=== PATIENT | male | born 1980 | race Caucasian/White ===

== ENCOUNTER 2017-09-13 18:17 | Inpatient (IN) | payer MEDICAID ==
[2017-09-13] VITALS (13 sets, daily range): BP systolic 17–180; BP diastolic 99–127
[~2017-09-13] VITALS: Ht 167.6 cm; Wt 88.5 kg
--- NOTE | ~2017-09-13 | ST ---
[place], [place] EXERCISE STRESS TEST REPORT NAME: AYAD BRAY [facility] #: [id number] UNIT #: [id number] ROOM: 521 DOCTOR: ONOFRE SYED MD BIRTHDATE: [birth year] DOS: 09/14/2017 REFERRING PHYSICIAN: Dr. Cheri Shankar. INDICATION: Central chest pain. The patient underwent standard Ahmet protocol stress EKG Baseline EKG shows normal sinus rhythm, nonspecific ST-T wave changes. The patient's baseline heart rate is 70 with a blood pressure of 148/90. The patient's peak heart rate was 167 with a blood pressure of 180/96. The patient exercised for 9 minutes and 30 seconds to a peak heart rate of 167, which represents 92% of maximum predicted. The patient achieved peak metabolic equivalent level of 10 mets. The patient had no chest pain, no EKG changes. No arrhythmias. The Lou treadmill score calculated at 9.5. SUMMARY OF FINDINGS: 1. Negative stress EKG for ischemia. 2. Lou treadmill score of 9.5, portending a low risk prognosis. 3. Please see separate report for perfusion scan results. ONOFRE SYED MD CM:STRESS:EXERCISE STRESS TEST REPORT [id number] ONOFRE SYED MD
[~2017-09-13 18:17] MED LIST: ABILIFY10 MG PO; AMOXICILLIN500 MG PO; CIPRO500 MG PO; CLEOCIN150 MG PO; CLINDAMYCIN HC300 MG PO; CLINDAMYCIN300 MG PO; FLOMAX0.4 MG PO; HYDROCODONE BIT1 T11 PO; MOTRIN800 MG PO; NAPROSYN500 MG PO; NORCO 325 MG-51 TAB PO; PEN-V500 MG PO; PEN-VEE K500 MG PO; PEN-VK500 MG PO; PENICILLIN VK500 MG PO; PERCOCET 325 MG1 TA2 PO; PERIDEX 480 ML480 ML PO; SEROQUEL50 MG PO; ULTRAM50 MG PO; VALIUM10 MG PO; VIBRAMYCIN100 MG PO; VICODIN ES 7501 TAB PO; XANAX PO; XANAX0.5 MG PO; XANAX2 MG PO; Zofran4 MG PO
[2017-09-13 18:29] LABS: BASO % 0.5 % (0.0-1.0); EOS # 0.1 10*3/uL (0.0-0.4); EOS % 1.4 % (1.0-4.0); HEMATOCRIT 46.4 % (42.0-52.0); HEMOGLOBIN 16.2 g/dl (14.0-18.0); LYMPH # 3.7 10*3/uL (1.3-4.4); LYMPH % 42.7 % (27.0-41.0); MEAN CELL VOLUME 90.4 fl (80.0-94.0); MEAN CORPUSCULAR HGB 31.6 pg (27.0-31.0); MEAN CORPUSCULAR HGB CONC 34.9 g/dl (33.0-37.0); MEAN PLATELET VOLUME 9.8 fl (9.6-12.3); MONO # 0.9 10*3/uL (0.1-1.0); MONO % 10.1 % (3.0-9.0); NEUT # 3.9 10*3/uL (2.3-7.9); NEUT % 45.1 % (47.0-73.0); PLATELET COUNT AUTOMATED 270 10*3/uL (130-400); RED BLOOD COUNT 5.13 10*6/uL (4.50-5.90); RED CELL DISTRI WIDTH 12.7 % (0-14.5); WHITE BLOOD COUNT 8.7 10*3/uL (4.8-10.8)
--- NOTE | 2017-09-13 18:39 | NUR ---
PT STATES, "IM TRYING HARD NOT TO PASS OUT." PT STATES HE FEELS NAUSEATED WELL.
[2017-09-13 18:47] LABS: ALBUMIN 3.8 gm/dl (3.1-4.5); ALKALINE PHOSPHATASE 73 U/L (45-117); BUN 5 mg/dl (7-24); CHLORIDE 102 mmol/L (98-107); CREATININE 1.06 mg/dL (0.70-1.30); MAGNESIUM 2.2 mg/dL (1.5-2.1); POTASSIUM 3.3 mmol/L (3.5-5.1); SGOT/AST 65 IU/L (3-35); SGPT/ALT 54 U/L (12-78); SODIUM 136 mmol/L (136-145); TOTAL PROTEIN 7.5 gm/dL (6.4-8.2); TROPONIN I < 0.015 ng/ml (<0.045)
[2017-09-13 18:50] LABS: ACT PARTIAL THROMBO TIME 22.8 SECONDS (20.8-31.5)
--- NOTE | 2017-09-13 19:24 | NUR ---
NORMAL SALINE TITRATED DOWN TO 250ML/HR AFTER INFORMING KINAS ABOUT BP
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
[2017-09-13 19:48] LABS: URINE AMPHETAMINES < 1000 (1000ng/ml); URINE BARBITURATES < 200 (200ng/ml); URINE BENZODIAZEPINES < 200 (200ng/ml); URINE CANNABINOIDS (THC) < 50 (50ng/ml); URINE COCAINE < 300 (300ng/ml); URINE METHADONE < 300 (300ng/ml); URINE OPIATES < 300 (300ng/ml)
[2017-09-13 19:49] LABS: URINE PHENCYCLIDINE < 25 (25ng/ml)
[2017-09-13 19:51] LABS: BILIRUBIN NEGATIVE (NEGATIVE); BLOOD NEGATIVE (NEGATIVE); CLARITY SL CLOUDY (CLEAR); COLOR YELLOW (YELLOW); GLUCOSE NEGATIVE (NEGATIVE); KETONE TRACE (NEGATIVE); LEUKO ESTERASE NEGATIVE (NEGATIVE); NITRITE NEGATIVE (NEGATIVE); UROBILINOGEN 0.2 E.U./dl (0.2-1.0)
[2017-09-13 20:10] LABS: BACTERIA 1+; EPITHELIAL CELLS 0-2; RBC 0-2 rbc/hpf (0-2); WBC 0-2 wbc/hpf (0-5)
--- NOTE | 2017-09-13 23:10 | NUR ---
[facility] , under the services of MIK Borden DO with a diagnosis of ACCLERATED HYPERTENSION, TACHYCARDIA. Chief complaint is CHEST PAIN . Patient arrived via ambulatory from ER. Monitor applied. Initial assessment completed. Vital signs taken and recorded. MIK BORDEN DO notified of admission to the unit. Orders received. See assessment for past medical history, medications and allergies. Patient and/or family oriented to unit. [address] visitation policy reviewed. Clothing/patient valuable form completed. DIMITRIOS RAI
--- NOTE | 2017-09-13 23:43 | NUR ---
DR. VAIL ANSWERING SERVICE CALLED AT THIS TIME FOR CONSULTATION. AWAITING RETURN CALL.
--- NOTE | 2017-09-13 23:46 | NUR ---
DR. SYED CALLED BACK AT THIS TIME. NEW ORDERE RECIEVED FOR CLONIDINE PRN . ALSO REMAIN NPO . AND PATIENT WILL BE SEEN IN AM .
--- NOTE | 2017-09-14 | NUR ---
PATIENT UNABLE TO PROVIDE MEDICATIONS LIST AND UNABLE TO REMEMBER WHAT MEDICATIONS HE TAKES
[2017-09-14 01:28] VITALS: BP 162/68
--- NOTE | 2017-09-14 01:30 | NUR ---
DR. WESTFALL AWARE THAT PATIENT DOES NOT KNOW HIS HOME MEDICAITONS.
[2017-09-14 04:00] VITALS: BP 168/92
[2017-09-14 06:03] VITALS: BP 136/72
--- NOTE | 2017-09-14 06:16 | NUR ---
PATIENT AROUSES EASILY FOR POTASSIUM SUPPLEMENT AT THIS TIME. BLOOD PRESSURE OBTAINED. PATIENT DENIES ANY NEEDS AT THE PRESENT TIME. CALL LIGHT IS IN REACH.
[2017-09-14 07:35] LABS: BASO % 0.4 % (0.0-1.0); EOS # 0.1 10*3/uL (0.0-0.4); EOS % 1.5 % (1.0-4.0); HEMATOCRIT 44.8 % (42.0-52.0); HEMOGLOBIN 15.3 g/dl (14.0-18.0); LYMPH # 1.9 10*3/uL (1.3-4.4); LYMPH % 19.4 % (27.0-41.0); MEAN CELL VOLUME 92.2 fl (80.0-94.0); MEAN CORPUSCULAR HGB 31.5 pg (27.0-31.0); MEAN CORPUSCULAR HGB CONC 34.2 g/dl (33.0-37.0); MONO # 0.8 10*3/uL (0.1-1.0); MONO % 7.9 % (3.0-9.0); NEUT # 6.7 10*3/uL (2.3-7.9); NEUT % 70.5 % (47.0-73.0); PLATELET COUNT AUTOMATED 225 10*3/uL (130-400); RED BLOOD COUNT 4.86 10*6/uL (4.50-5.90); RED CELL DISTRI WIDTH 12.9 % (0-14.5); WHITE BLOOD COUNT 9.6 10*3/uL (4.8-10.8)
--- NOTE | 2017-09-14 08:00 | NUR ---
Book Editor in to talk to patient. Patient states lives at HOME with HIS FIANCE. There are 3 steps in the home. Physician: DR VIGIL- HAS NOT SEEN Pharmacy: [facility] Home health services: NONE Patient's level of ADLs: INDEPENDENT Patient has working utilities: YES DME: NONE Follow-up physician's appointment after d/c: WILL BE MADE PRIOR TO DC Does patient want to access PORTAL?: Discharge plan HOME. PARUL REYNA
[2017-09-14 08:04] LABS: ALBUMIN 3.4 gm/dl (3.1-4.5); ALKALINE PHOSPHATASE 70 U/L (45-117); BUN 5 mg/dl (7-24); CHLORIDE 108 mmol/L (98-107); CHOLESTEROL 161 mg/dL (<200); CREATININE 0.99 mg/dL (0.70-1.30); HDL CHOLESTEROL 64 mg/dl (40-60); LDL CHOLESTEROL 83 mg/dL (9-159); PHOSPHOROUS 3.4 mg/dL (2.5-4.9); SGPT/ALT 49 U/L (12-78); TOTAL PROTEIN 6.9 gm/dL (6.4-8.2); TRIGLYCERIDES 68 mg/dl (<150); VLDL CHOLESTEROL 14 mg/dL (6-40)
[2017-09-14 08:11] VITALS: BP 112/83
[2017-09-14 08:13] LABS: VITAMIN D, 25-HYDROXY 21.1 ng/mL (30-100)
[2017-09-14 08:23] LABS: MAGNESIUM 2.2 mg/dL (1.5-2.1); SGOT/AST 50 IU/L (3-35); SODIUM 141 mmol/L (136-145)
[2017-09-14 08:27] LABS: POTASSIUM 4.4 mmol/L (3.5-5.1)
--- NOTE | 2017-09-14 11:30 | NUR ---
INFORMED CONSENT OBTAINED FOR EXERCISE CARDIOLITE STRESS TEST WITH DR. LUA. RESTING EKG NSR WITH FREQUENT PAC'S WITH A RESTING HR OF 70 WITH BP OF 148/90 AND HR OF 82 WITH BP OF 152/98 IN STANDING POSITION. PT COMPLETED 9:30 OF A JOSIE PROTOCOL WITH A PEAK HR OF 167 WHICH IS 92% OF PREDICTED MAX AND A PEAK BP OF 166/100. TEST TERMINATED BECAUSE OF FATIGUE. HAD NO CHEST PAIN OR ANY EKG CHANGES. HAS FREQUENT PAC'S. LAST RECOVERY HR OF 114 WITH BP OF 142/88. NEGATIVE GXT FOR EKG AT 92% OF PMHR. TO NUCLEAR MEDICINE IN STABLE CONDITION FOR SCANNING.
[2017-09-14 12:31] VITALS: BP 145/97
[2017-09-14] MEDS ORDERED: NICOTINE PATCH1 EAC2 TD (14:36)
[2017-09-14] MEDS ORDERED: LISINOPRIL10 M1 PO ×2 (14:36→14:49)
[2017-09-14] MEDS ORDERED: VITAMIN D-32000 UNI1 PO (14:37)
--- NOTE | 2017-09-14 15:11 | NUR ---
Discharge instructions reviewed with patient/family. Patient receptive and verbalizes understanding. Follow-up care arranged. Written instructions given to patient/family. FELISHA HICKS
[2017-09-15] MEDS ORDERED: XANAX2 M1 PO (23:57)
[2017-09-15] MEDS ORDERED: CLONIDINE HCL0.2 MG PO (23:59)
== END 2017-09-14 15:11 | disposition home or self-care (01) | DRG 313 ==
LOC: ED 18:17 → EDHOLD 21:37 → 5E 21:37
PROVIDERS: Emergency Medicine; Internal Medicine; Physician Assistant; ADMIT Internal Medicine
PROC: 3E073KZ Introduction of Other Diagnostic Substance into Coronary Artery, Percutaneous Approach (ICD-10-PCS; principal; 2017-09-14)
PROC: 4A02XM4 Measurement of Cardiac Total Activity, External Approach (ICD-10-PCS; principal; 2017-09-14)
DX: R07.89 Other chest pain (principal); E83.42 Hypomagnesemia; K22.8 Other specified diseases of esophagus; S02.82XA Fracture of other specified skull and facial bones, left side, initial encounter for closed fracture; I10 Essential (primary) hypertension; E87.6 Hypokalemia; F31.9 Bipolar disorder, unspecified; F17.210 Nicotine dependence, cigarettes, uncomplicated; F10.920 Alcohol use, unspecified with intoxication, uncomplicated; R73.9 Hyperglycemia, unspecified; R74.0 Nonspecific elevation of levels of transaminase and lactic acid dehydrogenase [LDH]; Z71.6 Tobacco abuse counseling; Z82.49 Family history of ischemic heart disease and other diseases of the circulatory system; Z79.899 Other long term (current) drug therapy; Z88.6 Allergy status to analgesic agent; Z88.5 Allergy status to narcotic agent; Y90.1 Blood alcohol level of 20-39 mg/100 ml; Y04.0XXA Assault by unarmed brawl or fight, initial encounter; Y93.89 Activity, other specified; Y92.89 Other specified places as the place of occurrence of the external cause; Y99.8 Other external cause status

== ENCOUNTER 2017-09-15 15:40 | Inpatient (IN) | payer MEDICAID ==
[~2017-09-15] VITALS: Ht 167.6 cm; Wt 90.1 kg
--- NOTE | ~2017-09-15 | CON ---
[place], [place] REPORT OF CONSULTATION [id number] #: [id number] ROOM: 504 DOCTOR: REMI MCCRACKEN MD BIRTHDATE: [birth year] DOS: 09/16/2017 HISTORY OF PRESENT ILLNESS: The patient was seen at his bedside with family in attendance on 09/16/2017. He is a 37-year-old man who does have a history of anxiety and tobacco abuse. He was hospitalized several days ago with chest pain and ruled out for myocardial infarction. A stress test showed no evidence for ischemia and normal left ventricular systolic function. He stated that he felt well when he got home, but was not sure that he got the right dose of his blood pressure medications. He had a disagreement with his children and was yelling at them when he felt lightheaded and then developed some pain under his left axilla. This resolved spontaneously, but recurred. He became frightened and therefore came to the Emergency Room. In the ER, all of his symptoms resolved. He has felt well since admission and denies any chest pain. Electrocardiograms showed LVH, but no acute changes and cardiac biomarkers were all normal. PAST MEDICAL HISTORY: Includes: 1. Bipolar disorder with depression. 2. Essential hypertension. 3. Schizophrenia. 4. History of facial fracture repair. 5. History of knee surgery. 6. CAT scan of the chest recently showed esophageal thickening consistent with esophagitis. MEDICATIONS: Prior to admission, alprazolam 0.5 mg p.o. p.r.n., vitamin D 2000 units daily, lisinopril 20 mg daily and nicotine patch daily. ALLERGIES: MORPHINE AND TRAMADOL. FAMILY HISTORY: The patient's father has hypertension at age 54. His mother is healthy at age 53. REVIEW OF SYSTEMS: The patient denies diplopia or loss of vision. He denies syncope, although he has been lightheaded. He denies focal weakness. He denies fevers, chills, sweats or recent weight change. He denies nausea or vomiting. He denies change in bowel or bladder habits and denies bleeding from his stools or urine. He denies any skin rashes. He denies hemoptysis or hematemesis. He denies any peripheral edema. He denies hot or swollen joints. There is no complaint of polydipsia, polyuria or heat or cold intolerance. The remainder of the review of systems is negative except as noted above. SOCIAL HISTORY: The patient has a history of alcohol abuse and does smoke, but does not use any illicit drugs. PHYSICAL EXAMINATION: GENERAL: Reveal fairly anxious and agitated appearing white male who is awake, alert and oriented. VITAL SIGNS: Pulse is 99 and regular, blood pressure is 140/90. He is afebrile. He weighs 90.1 kg and has a body mass index of 32.1. HEENT: Normocephalic, atraumatic. Extraocular muscles are intact. Sclerae are [place], [place] REPORT OF CONSULTATION NAME: AYAD BRAY UNIT #: [id number] ROOM: [facility] DOCTOR: REMI MCCRACKEN MD BIRTHDATE: [birth year] clear. Pupils are equal, round and reactive to light. The oral mucosa is moist. Tongue is midline. NECK: Supple. He has no jugular distention. Carotids are full and I heard no bruits. He had no neck or supraclavicular masses. LUNGS: Respirations are unlabored. His chest is clear to auscultation and percussion. He has no presacral edema or chest wall tenderness. CARDIOVASCULAR: His heart has a regular rhythm. He has a soft S4 gallop, but no S3 or murmur. The PMI is not displaced. He has no precordial heave, lift or thrill. ABDOMEN: Soft and normally active. EXTREMITIES: Pedal pulses are full and equal bilaterally. LABORATORY DATA: I reviewed his electrocardiogram, which showed sinus rhythm and left ventricular hypertrophy, but was otherwise unremarkable. IMPRESSIONS: 1. Atypical chest pain. The patient had a recent stress test which was low risk. He appears to be very anxious and it is likely that his anxiety is contributing to his chest discomfort. 2. Hypertension, which is only marginally controlled. 3. History of bipolar disorder and schizophrenia. PLAN: No other cardiac workup is planned at this time. The patient may be discharged to home with further management of his hypertension as an outpatient. [facility] and I thank Dr. King and the hospitalist physicians for asking our advice regarding his care. REMI MCCRACKEN MD CM:CONSTR:REPORT OF CONSULTATION [id number]/16/[id number] interface
[~2017-09-15 15:40] MED LIST changes: +LISINOPRIL10 M1 PO; +NICOTINE PATCH1 EAC2 TD; +VITAMIN D-32000 UNI1 PO
[2017-09-15 15:51] VITALS: BP 148/97
[2017-09-15 16:06] LABS: BASO % 0.4 % (0.0-1.0); EOS % 0.3 % (1.0-4.0); HEMATOCRIT 42.7 % (42.0-52.0); HEMOGLOBIN 14.7 g/dl (14.0-18.0); LYMPH # 1.4 10*3/uL (1.3-4.4); LYMPH % 19.6 % (27.0-41.0); MEAN CELL VOLUME 92.2 fl (80.0-94.0); MEAN CORPUSCULAR HGB 31.7 pg (27.0-31.0); MEAN CORPUSCULAR HGB CONC 34.4 g/dl (33.0-37.0); MEAN PLATELET VOLUME 9.8 fl (9.6-12.3); MONO # 0.7 10*3/uL (0.1-1.0); MONO % 9.2 % (3.0-9.0); NEUT % 70.2 % (47.0-73.0); PLATELET COUNT AUTOMATED 207 10*3/uL (130-400); RED BLOOD COUNT 4.63 10*6/uL (4.50-5.90); RED CELL DISTRI WIDTH 12.8 % (0-14.5); WHITE BLOOD COUNT 7.2 10*3/uL (4.8-10.8)
[2017-09-15 16:15] LABS: ACT PARTIAL THROMBO TIME 21.5 SECONDS (20.8-31.5)
[2017-09-15 16:23] LABS: ALBUMIN 3.6 gm/dl (3.1-4.5); ALKALINE PHOSPHATASE 74 U/L (45-117); BUN 5 mg/dl (7-24); CHLORIDE 106 mmol/L (98-107); CREATININE 1.08 mg/dL (0.70-1.30); MAGNESIUM 2.1 mg/dL (1.5-2.1); POTASSIUM 3.9 mmol/L (3.5-5.1); SGOT/AST 36 IU/L (3-35); SGPT/ALT 48 U/L (12-78); SODIUM 139 mmol/L (136-145); TOTAL PROTEIN 7.3 gm/dL (6.4-8.2)
[2017-09-15 16:24] LABS: TROPONIN I < 0.015 ng/ml (<0.045)
[2017-09-15 16:47] VITALS: BP 137/93
--- NOTE | 2017-09-15 17:11 | NUR ---
LEFT MESSAGE FOR CONSULT WITH CARDIOLOGY ANSWERING SERVICE
--- NOTE | 2017-09-15 17:18 | NUR ---
A 37, admitted to 5E, under the services of CANDACE Weston DO with a diagnosis of CHEST PAIN. Chief complaint is LEFT SIDED CHEST PAIN. FELT LIKE HE WAS GOING TO PASS OUT. Patient arrived via stretcher from ER. Monitor applied. Initial assessment completed. Vital signs taken and recorded. CANDACE WESTON DO notified of admission to the unit. Orders received. See assessment for past medical history, medications and allergies. Patient and/or family oriented to unit. [address] visitation policy reviewed. Clothing/patient valuable form completed. MARISABEL NARVAEZ
--- NOTE | 2017-09-15 17:30 | NUR ---
MEDS VERIFIED WITH D/C YESTERDAY'S DISCHARGE. PATIENT'S PHARMACY IS CLOSED.
[2017-09-15 17:35] VITALS: BP 134/88
--- NOTE | 2017-09-15 17:58 | NUR ---
URSULAIED DR SALTER THAT MEDS WERE VERIFIED WITH D/C
[2017-09-15 20:00] VITALS: BP 150/78
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
[2017-09-15 22:25] LABS: BILIRUBIN NEGATIVE (NEGATIVE); BLOOD NEGATIVE (NEGATIVE); CLARITY CLEAR (CLEAR); COLOR YELLOW (YELLOW); GLUCOSE NEGATIVE (NEGATIVE); KETONE NEGATIVE (NEGATIVE); LEUKO ESTERASE NEGATIVE (NEGATIVE); NITRITE NEGATIVE (NEGATIVE); SPECIFIC GRAVITY <= 1.005 (1.005-1.030); UROBILINOGEN 0.2 E.U./dl (0.2-1.0)
[2017-09-15 22:32] LABS: BACTERIA TRACE; EPITHELIAL CELLS 0-2; RBC 0-2 rbc/hpf (0-2); WBC 0-2 wbc/hpf (0-5)
[2017-09-15] MEDS ORDERED: XANAX2 M1 PO (23:57)
[2017-09-15] MEDS ORDERED: CLONIDINE HCL0.2 MG PO (23:59)
[2017-09-16] VITALS: BP 150/90
[2017-09-16] MEDS ORDERED: TRAZODONE100 MG PO
--- NOTE | 2017-09-16 | NUR ---
PT'S VERY ANXIOUS; BLOOD PRESSURE ELEVATED. CALLED DR. DYER TO INFORM HIM. PT. ALSO TAKES XANAX 2 MG PO TID & XANAX 0.5 MG WAS ORDERED FOR PT. PT. CONTINIOUSLY ON CELL PHONE & STATES THAT HIS IS TRYING TO PUT THEIR CHILDREN TO SLEEP. PT. ALSO STATES THAT HE HAS A DIFFICULT TIME SLEEPING & RELAXING. NEW ORDER RECEIVED FROM DR. DYER.
--- NOTE | 2017-09-16 01:14 | NUR ---
MEDICATED WITH XANAX AN ADDITIONAL 1.5 MG.
--- NOTE | 2017-09-16 04:24 | NUR ---
RESTING IN BED WITH EYES CLOSED; XANAX GIVEN EARLIER APPARENTLY EFFECTIVE.
[2017-09-16 06:42] LABS: BASO % 0.4 % (0.0-1.0); EOS # 0.1 10*3/uL (0.0-0.4); EOS % 1.4 % (1.0-4.0); HEMATOCRIT 43.3 % (42.0-52.0); HEMOGLOBIN 14.6 g/dl (14.0-18.0); LYMPH # 1.9 10*3/uL (1.3-4.4); LYMPH % 25.2 % (27.0-41.0); MEAN CORPUSCULAR HGB CONC 33.7 g/dl (33.0-37.0); MEAN PLATELET VOLUME 10.1 fl (9.6-12.3); MONO # 0.7 10*3/uL (0.1-1.0); MONO % 9.7 % (3.0-9.0); NEUT # 4.6 10*3/uL (2.3-7.9); PLATELET COUNT AUTOMATED 186 10*3/uL (130-400); RED BLOOD COUNT 4.56 10*6/uL (4.50-5.90); RED CELL DISTRI WIDTH 12.7 % (0-14.5); WHITE BLOOD COUNT 7.4 10*3/uL (4.8-10.8)
[2017-09-16 06:53] LABS: ALBUMIN 3.2 gm/dl (3.1-4.5); ALKALINE PHOSPHATASE 69 U/L (45-117); BUN 6 mg/dl (7-24); CHLORIDE 107 mmol/L (98-107); CREATININE 0.93 mg/dL (0.70-1.30); MAGNESIUM 2.2 mg/dL (1.5-2.1); PHOSPHOROUS 3.9 mg/dL (2.5-4.9); POTASSIUM 3.6 mmol/L (3.5-5.1); SGOT/AST 23 IU/L (3-35); SGPT/ALT 44 U/L (12-78); SODIUM 141 mmol/L (136-145); TOTAL PROTEIN 6.8 gm/dL (6.4-8.2)
--- NOTE | 2017-09-16 07:30 | NUR ---
ASSUMED CARE OF PT AT THIS TIME, RESPS EASY AND NONLABORED WITH NO S/S OF DISTRESS CALL LIGHT WITH IN REACH.
[2017-09-16 08:00] VITALS: BP 151/79
--- NOTE | 2017-09-16 10:00 | NUR ---
PT REFUSED LOVENOX INJECTION AT THIS TIME, STATES THAT HE HAS BEEN AMBULATING IN ROOM, AND DOES NOT NEED MEDICATION
--- NOTE | 2017-09-16 11:35 | NUR ---
PT PACING UP AND DOWN HALLWAY, PT STATES THAT HE IS HAVING FAMILY PROBLEMS AND IS WANTING TO GO HOME
[2017-09-16 12:00] VITALS: BP 148/69
[2017-09-16 15:55] VITALS: BP 143/91
--- NOTE | 2017-09-16 18:35 | NUR ---
INTO SEE PT AT THIS TIME
--- NOTE | 2017-09-16 18:43 | NUR ---
CALL PLACED TO RESIDENT TO NOTIFY THAT HAS SIGNED OFF ON PT, AWAITING A RETURN CALL
--- NOTE | 2017-09-16 19:40 | NUR ---
HEP LOCK DISCONTINUED; STERILE DRESSING APPLIED. MONITOR TAKEN OFF & GIVEN TO RAMP AGENT.
--- NOTE | 2017-09-16 19:50 | NUR ---
DISCHARGE INSTRUCTIONS REVIEWED WITH PT. PT. VERBALIZED UNDERSTANDING. PT. ASKING QUESTIONS ABOUT HOME MEDICATIONS; EXPLAINED MEDICATIONS TO PATIENT. PT'S [id number] HERE TO TAKE HIM HOME. PT. ENCOURAGED TO FOLLOW UP & ADVISED TO OBTAIN A PCP. PT. VERBALIZED UNDERSTANDING.
--- NOTE | 2017-09-16 19:55 | NUR ---
LEFT AMBULATORY ACCOMPANIED BY [id number].
== END 2017-09-16 19:55 | disposition home or self-care (01) | DRG 391 ==
LOC: ED 15:40 → EDHOLD 16:10 → 5E 16:45
PROVIDERS: Emergency Medicine; Student in an Organized Health Care Education/Training Program; ADMIT Internal Medicine
DX: K21.9 Gastro-esophageal reflux disease without esophagitis (principal); J18.9 Pneumonia, unspecified organism; F20.9 Schizophrenia, unspecified; I10 Essential (primary) hypertension; D72.810 Lymphocytopenia; F41.9 Anxiety disorder, unspecified; R07.89 Other chest pain; R73.9 Hyperglycemia, unspecified; F31.9 Bipolar disorder, unspecified; R74.0 Nonspecific elevation of levels of transaminase and lactic acid dehydrogenase [LDH]; F10.10 Alcohol abuse, uncomplicated; F17.200 Nicotine dependence, unspecified, uncomplicated; Z71.6 Tobacco abuse counseling; Z88.6 Allergy status to analgesic agent; Z88.8 Allergy status to other drugs, medicaments and biological substances; Z79.899 Other long term (current) drug therapy; Z87.81 Personal history of (healed) traumatic fracture; Z82.49 Family history of ischemic heart disease and other diseases of the circulatory system

== ENCOUNTER → 2017-10-02 | Outpatient (CLI) | payer MEDICAID ==
[~2017-10-02] MED LIST changes: +CLONIDINE HCL0.2 MG PO; +TRAZODONE100 MG PO; +XANAX2 M1 PO
== END | disposition home or self-care (01) ==
LOC: RESCLI 08:22
DX: Z76.89 Persons encountering health services in other specified circumstances (principal); I10 Essential (primary) hypertension; E55.9 Vitamin D deficiency, unspecified; F41.9 Anxiety disorder, unspecified; F33.9 Major depressive disorder, recurrent, unspecified; G47.00 Insomnia, unspecified; Z71.6 Tobacco abuse counseling; Z72.0 Tobacco use; Z88.5 Allergy status to narcotic agent

== ENCOUNTER → 2018-07-02 | Outpatient (CLI) | payer OTHER | END | disposition home or self-care (01) | LOC: RESCLI 03:40 | DX: I10 Essential (primary) hypertension (principal); G47.00 Insomnia, unspecified; G62.9 Polyneuropathy, unspecified; F41.9 Anxiety disorder, unspecified; F33.9 Major depressive disorder, recurrent, unspecified; E55.9 Vitamin D deficiency, unspecified; R61 Generalized hyperhidrosis; F17.200 Nicotine dependence, unspecified, uncomplicated; Z71.6 Tobacco abuse counseling; Z76.89 Persons encountering health services in other specified circumstances; Z88.8 Allergy status to other drugs, medicaments and biological substances ==

== ENCOUNTER → 2020-05-07 | Outpatient (CLI) | payer SELFPAY | END | disposition home or self-care (01) | LOC: RESCLI 05:20 | DX: E55.9 Vitamin D deficiency, unspecified (principal); F41.9 Anxiety disorder, unspecified; I10 Essential (primary) hypertension; F33.9 Major depressive disorder, recurrent, unspecified; G47.00 Insomnia, unspecified; G62.9 Polyneuropathy, unspecified; K21.0 Gastro-esophageal reflux disease with esophagitis; G25.81 Restless legs syndrome; R22.1 Localized swelling, mass and lump, neck; N52.8 Other male erectile dysfunction; Z79.899 Other long term (current) drug therapy; Z72.0 Tobacco use ==

== ENCOUNTER 2021-01-28 18:45 | Observation (INO) | payer SELFPAY ==
[~2021-01-28] VITALS: Ht 168 cm; Wt 82.3 kg
[2021-01-28 18:49] VITALS: BP 172/85
[2021-01-28 19:10] LABS: BASO % 0.2 % (0.0-1.0); EOS # 0.1 10*3/uL (0.0-0.4); EOS % 0.8 % (1.0-4.0); LYMPH # 1.5 10*3/uL (1.3-4.4); LYMPH % 12.8 % (27.0-41.0); MEAN CELL VOLUME 88.3 fl (80.0-94.0); MEAN CORPUSCULAR HGB 29.1 pg (27.0-31.0); MEAN PLATELET VOLUME 9.1 fl (9.6-12.3); MONO # 0.7 10*3/uL (0.1-1.0); MONO % 5.4 % (3.0-9.0); NEUT # 9.7 10*3/uL (2.3-7.9); NEUT % 80.4 % (47.0-73.0); PLATELET COUNT AUTOMATED 250 10*3/uL (130-400); RED BLOOD COUNT 4.53 10*6/uL (4.50-5.90); RED CELL DISTRI WIDTH 12.9 % (0-14.5); WHITE BLOOD COUNT 12.1 10*3/uL (4.8-10.8)
[2021-01-28 19:26] LABS: ALBUMIN 3.5 gm/dl (3.1-4.5); ALKALINE PHOSPHATASE 91 U/L (45-117); BUN 11 mg/dl (7-24); CHLORIDE 108 mmol/L (98-107); CREATININE 0.94 mg/dL (0.70-1.30); LIPASE 55 U/L (73-393); POTASSIUM 3.3 mmol/L (3.5-5.1); SGOT/AST 15 IU/L (3-35); SGPT/ALT 21 U/L (12-78); SODIUM 141 mmol/L (136-145); TOTAL PROTEIN 7.2 gm/dL (6.4-8.2)
[2021-01-28 21:16] VITALS: BP 127/72
[2021-01-28 23:40] LABS: BILIRUBIN Negative (Negative); BLOOD 3+ (Negative); CLARITY Clear (Clear); COLOR Yellow (Yellow); GLUCOSE Negative (Negative); KETONE Trace (Negative); LEUKO ESTERASE Negative (Negative); NITRITE Negative (Negative); UROBILINOGEN 0.2 E.U./dl (0.0-1.0)
[2021-01-28 23:49] VITALS: BP 126/72
[2021-01-28 23:51] LABS: YEAST 1+
[2021-01-29] VITALS (9 sets, daily range): BP systolic 115–155; BP diastolic 67–81
[2021-01-29] MEDS ORDERED: LISINOPRIL20 MG PO (00:54)
[2021-01-29] MEDS ORDERED: OMEPRAZOLE MAGN20 MG PO (00:55)
[2021-01-29] MEDS ORDERED: BUSPAR15 MG PO (00:56)
[2021-01-29 07:22] LABS: BASO % 0.3 % (0.0-1.0); EOS # 0.3 10*3/uL (0.0-0.4); EOS % 2.9 % (1.0-4.0); HEMATOCRIT 40.6 % (42.0-52.0); LYMPH # 2.9 10*3/uL (1.3-4.4); LYMPH % 32.5 % (27.0-41.0); MEAN CELL VOLUME 86.9 fl (80.0-94.0); MEAN CORPUSCULAR HGB 28.9 pg (27.0-31.0); MEAN CORPUSCULAR HGB CONC 33.3 g/dl (33.0-37.0); MEAN PLATELET VOLUME 9.1 fl (9.6-12.3); MONO # 0.9 10*3/uL (0.1-1.0); MONO % 10.4 % (3.0-9.0); NEUT # 4.7 10*3/uL (2.3-7.9); NEUT % 53.6 % (47.0-73.0); PLATELET COUNT AUTOMATED 269 10*3/uL (130-400); RED BLOOD COUNT 4.67 10*6/uL (4.50-5.90); RED CELL DISTRI WIDTH 13.2 % (0-14.5); WHITE BLOOD COUNT 8.8 10*3/uL (4.8-10.8)
[2021-01-29 19:52] LABS: BASO % 0.3 % (0.0-1.0); EOS # 0.3 10*3/uL (0.0-0.4); HEMATOCRIT 37.6 % (42.0-52.0); LYMPH # 2.4 10*3/uL (1.3-4.4); LYMPH % 26.8 % (27.0-41.0); MEAN CELL VOLUME 89.1 fl (80.0-94.0); MEAN CORPUSCULAR HGB 28.9 pg (27.0-31.0); MEAN CORPUSCULAR HGB CONC 32.4 g/dl (33.0-37.0); MEAN PLATELET VOLUME 9.2 fl (9.6-12.3); MONO # 0.8 10*3/uL (0.1-1.0); MONO % 8.4 % (3.0-9.0); NEUT # 5.6 10*3/uL (2.3-7.9); NEUT % 61.3 % (47.0-73.0); PLATELET COUNT AUTOMATED 248 10*3/uL (130-400); RED BLOOD COUNT 4.22 10*6/uL (4.50-5.90); RED CELL DISTRI WIDTH 13.3 % (0-14.5); WHITE BLOOD COUNT 9.1 10*3/uL (4.8-10.8)
[2021-01-29 20:06] LABS: BUN 9 mg/dl (7-24); CHLORIDE 109 mmol/L (98-107); CREATININE 1.15 mg/dL (0.70-1.30); SODIUM 141 mmol/L (136-145)
[2021-01-29 20:09] LABS: ACT PARTIAL THROMBO TIME 25.2 SECONDS (20.0-32.1)
[2021-01-29 20:13] LABS: POTASSIUM 4.4 mmol/L (3.5-5.1)
[2021-01-30] VITALS: BP 123/91
[2021-01-30 06:58] LABS: THYROID STIM HORMONE (HS) 0.623 uIU/ml (0.358-4.75)
[2021-01-30 07:22] LABS: BUN 10 mg/dl (7-24); CHLORIDE 109 mmol/L (98-107); CREATININE 1.03 mg/dL (0.70-1.30); POTASSIUM 3.7 mmol/L (3.5-5.1); SODIUM 140 mmol/L (136-145)
[2021-01-30 08:00] VITALS: BP 153/76
[2021-01-30] MEDS ORDERED: HYDROCODONE-AC1 EAC1 PO (09:11)
[2021-01-30] MEDS ORDERED: VITAMIN D350 MC2 PO (09:11)
== END 2021-01-30 10:10 | disposition home or self-care (01) ==
LOC: ED 18:45 → 5E 23:53 → EDHOLD 23:53 → 5E 01-29 00:31
PROVIDERS: Emergency Medicine; Hospitalist; Student in an Organized Health Care Education/Training Program; ADMIT Emergency Medicine; ATTEND Emergency Medicine
DX: K35.80 Unspecified acute appendicitis (principal); E87.6 Hypokalemia; D72.829 Elevated white blood cell count, unspecified; D64.9 Anemia, unspecified; E87.8 Other disorders of electrolyte and fluid balance, not elsewhere classified; I10 Essential (primary) hypertension; F31.9 Bipolar disorder, unspecified; F20.9 Schizophrenia, unspecified; E55.9 Vitamin D deficiency, unspecified; F19.90 Other psychoactive substance use, unspecified, uncomplicated; R73.9 Hyperglycemia, unspecified; Z79.899 Other long term (current) drug therapy